=== PATIENT | female | born 1995 | race Caucasian/White ===

== ENCOUNTER 2021-03-20 06:08 | Emergency (ER) | payer OTHER ==
[~2021-03-20 06:08] MED LIST: AUGMENTIN 875-1 EACH PO; DOXYCYCLINE PO; FLEXERIL 10 MG10 MG PO; IBUPROFEN600 MG PO; NORCO 5-325 TA1 EACH PO; TYLENOL 325MG325 MG PO
[2021-03-20 06:45] LABS: HEMOGLOBIN 14.9 gm/dl (12.3-15.3); RED BLOOD COUNT 5.36 M/UL (4.00-5.10); WHITE BLOOD COUNT 8.8 K/UL (4.5-11.0)
[2021-03-20 07:20] LABS: BUN/CREATININE RATIO 10 (0-10)
== END 2021-03-20 08:28 | disposition home or self-care (01) ==
LOC: ER1 06:08
PROVIDERS: Physician Assistant
DX: R07.9 Chest pain, unspecified (principal); J45.909 Unspecified asthma, uncomplicated; F17.210 Nicotine dependence, cigarettes, uncomplicated
CPT/HCPCS: 71045; 80053; 82550; 82553; 83874; 84484; 85025; 85379; 93005; 99285